=== PATIENT | male | born 1970 | race Caucasian/White ===

== ENCOUNTER 2021-07-15 10:13 | Emergency (ER) | payer BC ==
--- NOTE | 2021-07-15 12:42 | EDM.PDOC ---
ED HPI GENERAL MEDICAL PROBLEM - General Chief Complaint: Abdominal Pain Stated Complaint: ABD PAIN Time Seen by Provider: 07/15/21 12:37 Source of Information: Reports: Patient, RN Notes Reviewed History Limitations: Reports: No Limitations - History of Present Illness INITIAL COMMENTS - FREE TEXT/NARRATIVE: 50-year-old gentleman presents emergency department day complaint of abdominal pain, he states the pain started about 4 days ago has progressively gotten worse it will come and go it is positional no nausea vomiting no shortness of breath no chest pain no history of abdominal surgeries no history of colonoscopy no history of renal stones, declines pain medication at this time Left Lower Abdomen Pain Score (Numeric/FACES): 3 - Related Data Allergies Allergy/AdvReac Type Severity Reaction Status Date / Time No Known Allergies Allergy Verified 07/15/21 12:29 Home Meds: Home Meds NK [No Known Home Meds] 07/15/21 [History] Past Medical History - Past Health History Medical/Surgical History: Denies Medical/Surgical History - Infectious Disease History Infectious Disease History: Reports: Chicken Pox Social & Family History - Tobacco Use Tobacco Use Status *Q: Current Every Day Tobacco User Years of Tobacco use: 20 Packs/Tins Daily: 0.5 - Caffeine Use Caffeine Use: Reports: Coffee - Alcohol Use Days Per Week of Alcohol Use: 7 Number of Drinks Per Day: 3 Total Drinks Per Week: 21 - Recreational Drug Use Recreational Drug Use: No ED ROS GENERAL - Review of Systems Review Of Systems: See Below Constitutional: Reports: No Symptoms HEENT: Reports: No Symptoms Respiratory: Reports: No Symptoms Cardiovascular: Reports: No Symptoms GI/Abdominal: Reports: Abdominal Pain, Flatus. Denies: Nausea, Vomiting ED EXAM, GI/ABD - Physical Exam Exam: See Below Exam Limited By: No Limitations General Appearance: Alert, WD/WN, No Apparent Distress Respiratory/Chest: No Respiratory Distress GI/Abdominal Exam: Soft, Tender (Left lower quadrant left flank). No: Guarding, Rigid, Rebound Course - Vital Signs Last Recorded V/S: Last Vital Signs Temp 98 F 07/15/21 12:26 Pulse 78 07/15/21 12:26 Resp 16 07/15/21 12:26 BP 155/92 H 07/15/21 12:26 Pulse Ox 99 07/15/21 12:26 - Orders/Labs/Meds Labs: Laboratory Tests 07/15/21 Range/Units 13:50 Urine Color Yellow (YELLOW) Urine Appearance Clear (CLEAR) Urine pH 5.5 (5.0-8.0) Ur Specific [place] <= 1.005 L (1.008-1.030) Urine Protein Negative (NEGATIVE) mg/dL Urine Glucose (UA) Negative (NEGATIVE) mg/dL Urine Ketones Negative (NEGATIVE) mg/dL Urine Occult Blood Trace-intact H (NEGATIVE) Urine Nitrite Negative (NEGATIVE) Urine Bilirubin Negative (NEGATIVE) Urine Urobilinogen 0.2 (0.2-1.0) EU/dL Ur Leukocyte Esterase Negative (NEGATIVE) Urine RBC 0-5 (0-5) Urine WBC 0-5 (0-5) Ur Epithelial Cells Rare Amorphous Sediment Rare Urine Bacteria Rare Urine Mucus Not seen Departure - Departure Time of Disposition: 14:40 Disposition: Home, Self-Care 01 Condition: Fair Clinical Impression: Diverticulitis - Discharge Information Instructions: Diverticulitis, [id number] Referrals: PCP,None [Primary Care Provider] - Forms: ED Department Discharge Additional Instructions: Take full course of antibiotics use Tylenol or Motrin as needed for baseline pain control use the tramadol for breakthrough pain, do not drive on this medication, please followup with your primary care provider in 3-5 days if not better, please call return to the emergency department with worsening of symptoms. Sepsis Event Note (ED) - Evaluation Sepsis Screening Result: No Definite Risk - Focused Exam Vital Signs: Vital Signs Temp Pulse Resp BP Pulse Ox 07/15/21 12:26 98 F 78 16 155/92 H 99 - Assessment/Plan Plan: Assessment Acuity = acute Site and laterality = descending diverticulitis Etiology = unknown Manifestations = abdominal pain Location of injury = Home Lab values = CT scan describes diverticulitis above Plan Treat empirically Augmentin 875 p.o. be 80 x 10 days, tramadol 50 mg 1 tab p.o. every 6 hours as needed total #15 provided pain control follow-up primary care 3 to 5 days if not better This note was dictated using [employer] voice recognition software please call with any questions on syntax or grammar.
--- NOTE | 2021-07-15 13:51 | CT ---
Abdomen Pelvis wo Cont CLINICAL HISTORY: Left flank pain COMPARISON: None. TECHNIQUE: Axial tomographic images are obtained from the dome of the diaphragm to the pubic symphysis without IV contrast enhancement. No contrast was used. The dosage reduction and iterative reconstruction techniques employed. FINDINGS: The lung bases are clear. The liver shows no mass or biliary dilatation. The gallbladder has a normal contour. The spleen has a normal size and shape. The pancreas shows no mass or inflammatory change. The adrenal glands are normal bilaterally. The kidneys show no mass, stones or hydronephrosis. There is some stranding in the left perinephric fat. There is diverticulosis of the descending colon. There is a segment of thickened descending colon with stranding in the pericolic fat no abnormal fluid collection is identified. Small intestinal gas pattern is nonspecific. The appendix has a normal contour. The aorta has a normal caliber. There is no suspicious retroperitoneal adenopathy. IMPRESSION: Descending colon diverticulitis. No abscess formation identified
== END 2021-07-15 15:00 | disposition home or self-care (01) ==
LOC: JP.ED 10:13
DX: K57.32 Diverticulitis of large intestine without perforation or abscess without bleeding (principal); Z72.0 Tobacco use
CPT/HCPCS: 74176; 74176-26; 81001; 99284-25

== ENCOUNTER → 2023-03-15 | Emergency (ER) | payer OTHER | END | disposition home or self-care (01) | LOC: JP.ED 10:34 | DX: S60.221A Contusion of right hand, initial encounter (principal); F17.210 Nicotine dependence, cigarettes, uncomplicated; W22.8XXA Striking against or struck by other objects, initial encounter | CPT/HCPCS: 73130-26-RT; 73130-RT; 99283 ==